=== PATIENT | male | born 1930 | race Caucasian/White ===

== ENCOUNTER → 2016-09-23 | Outpatient (CLI) | payer OTHER | LOC: BRMIMAGING 10:12 | PROVIDERS: ATTEND Internal Medicine | DX: Z13.820 Encounter for screening for osteoporosis (principal); M85.80 Other specified disorders of bone density and structure, unspecified site; Z82.62 Family history of osteoporosis; Z79.52 Long term (current) use of systemic steroids ==

== ENCOUNTER → 2017-01-16 | Outpatient (CLI) | payer OTHER | LOC: FIMAGING 18:29 | PROVIDERS: ATTEND Internal Medicine | DX: M51.36 Other intervertebral disc degeneration, lumbar region (principal); M48.06 Spinal stenosis, lumbar region; M89.38 Hypertrophy of bone, other site; M51.86 Other intervertebral disc disorders, lumbar region ==

== ENCOUNTER → 2017-02-01 | Outpatient (CLI) | payer OTHER ==
[~2017-02-01] MED LIST: IOPAMIDOL (ISOVUE-300) 100 ML BTL ONE
== END ==
LOC: CIMAGING 11:10
PROVIDERS: ATTEND Surgery
DX: K57.30 Diverticulosis of large intestine without perforation or abscess without bleeding (principal); I70.0 Atherosclerosis of aorta; M53.3 Sacrococcygeal disorders, not elsewhere classified; Z90.89 Acquired absence of other organs; Z96.643 Presence of artificial hip joint, bilateral
CPT/HCPCS: 74177; Q9967

== ENCOUNTER 2017-11-13 11:36 | Emergency (ER) | payer OTHER ==
[2017-11-13] MEDS ORDERED: ASPIRIN 81 MG CHEWABLE TAB PO ONE (11:44)
--- NOTE | 2017-11-13 11:47 | CPEKG ---
Heart Rate: 59 RR Interval: 1017 P-R Interval: 172 QRSD Interval: 82 QT Interval: 404 QTC Interval: 401 P [place]: 44 QRS [place]: 42 T Wave [place]: 5 EKG Severity - NORMAL ECG - EKG Impression: SINUS RHYTHM Electronically Signed By: Aleks Cruz 13-Nov-2017 11:49:18
--- NOTE | 2017-11-13 11:48 | EDPHY ---
H & P Stated Complaint: CP Time Seen by Provider: 11/13/17 11:39 HPI/ROS: CHIEF COMPLAINT: Chest pain HISTORY OF PRESENT ILLNESS: The patient is an 86-year-old man with a history GERD on omeprazole also CVA 4 years ago on Pradaxa and paroxysmal AFib who remains un anticoagulated as well as a carotid endarterectomy. He states that last each of the last 2 nights he woke up around midnight with chest pain that persisted for about an hour. It did seem to improve when he took Tums. He is currently asymptomatic. He denies any history of cardiovascular disease. He denies shortness of breath or lightheadedness or diaphoresis associated with the episodes. No nausea vomiting or diarrhea. No focal weakness or deficits. Today he presented to his primary care's office who referred him here to the ER. REVIEW OF SYSTEMS: Constitutional: denies: chills, fever, recent illness, recent injury EENTM: denies: blurred vision, double vision, nose congestion Respiratory: denies: cough, shortness of breath Cardiac: denies: chest pain, irregular heart rate, lightheadedness, palpitations Gastrointestinal/Abdominal: denies: abdominal pain, diarrhea, nausea, vomiting, blood streaked stools Genitourinary: denies: dysuria, frequency, hematuria, pain Musculoskeletal: denies: joint pain, muscle pain Skin: denies: lesions, rash, jaundice, bruising Neurological: denies: headache, numbness, paresthesia, tingling, dizziness, weakness Hematologic/Lymphatic: denies: blood clots, easy bleeding, easy bruising Immunologic/allergic: denies: HIV/AIDS, transplant EXAM: GENERAL: Well-appearing, well-nourished and in no acute distress. HEAD: Atraumatic, normocephalic. EYES: Pupils equal round and reactive to light, extraocular movements intact, sclera anicteric, conjunctiva are normal. ENT: TMs normal, nares patent, oropharynx clear without exudates. Moist mucous membranes. NECK: Normal range of motion, supple without lymphadenopathy or JVD. LUNGS: Breath sounds clear to auscultation bilaterally and equal. No wheezes rales or rhonchi. HEART: Loud systolic murmur patient states baseline, rubs or gallops. ABDOMEN: Soft, nontender, normoactive bowel sounds. No guarding, no rebound. No masses appreciated. BACK: No CVA tenderness, no spinal tenderness, step-offs or deformities EXTREMITIES: Normal range of motion, no pitting or edema. No clubbing or cyanosis. NEUROLOGICAL: Cranial nerves II through XII grossly intact. Normal speech, normal gait. 5/5 strength, normal movement in all extremities, normal sensation PSYCH: Normal mood, normal affect. SKIN: Warm, dry, normal turgor, no visible rashes or lesions. Source: Patient, Family Exam Limitations: No limitations - Personal History Current Tetanus/Diphtheria Vaccine: Yes Current Tetanus Diphtheria and Acellular Pertussis (TDAP): Yes Tetanus Vaccine Date: WITHIN 10 YRS - Medical/Surgical History Hx Asthma: No Hx Chronic Respiratory Disease: No Hx Diabetes: No Hx Cardiac Disease: No Hx Renal Disease: No Hx Cirrhosis: No Hx Alcoholism: No Hx HIV/AIDS: No Hx Splenectomy or Spleen Trauma: No Other PMH: med hx-ra,cholesterol,htn. surg-bilat hips,knee repl,lumbar. stroke 2013, carotid endart., hernia repair, plebitis lt arm,lap sherice - Family History Significant Family History: No pertinent family hx - Social History Smoking Status: Former smoker Alcohol Use: Sober Drug Use: None Constitutional: Initial Vital Signs Temperature (C) 36.7 C 11/13/17 11:40 Heart Rate 65 11/13/17 11:40 Respiratory Rate 16 11/13/17 11:40 Blood Pressure 161/72 H 11/13/17 11:40 O2 Sat (%) 97 11/13/17 11:40 O2 Delivery Mode Room Air Allergies/Adverse Reactions: amoxicillin [From Augmentin] Allergy (Verified 10/31/16 13:56) apixaban [From Eliquis] Allergy (Verified 11/13/17 11:45) ciprofloxacin [From Cipro] Allergy (Verified 10/31/16 13:55) clavulanic acid [From Augmentin] Allergy (Verified 10/31/16 13:56) Home Medications: Medication Instructions Recorded Beta-Carotene(A) W-C & E/Min 12/06/13 [Ocuvite] Multivitamin [Multi-Vitamin Daily] 12/06/13 Omeprazole [Prilosec] 12/06/13 predniSONE 12/06/13 Ocuvite 07/27/14 Pradaxa 07/27/14 HCTZ (*) 10/31/16 Irbesartan 10/31/16 Potassium Chlorate 10/31/16 Medical Decision Making - Diagnostics EKG Interpretation: An EKG obtained and was read and documented in trace view. Please see trace view for full reading and report. Sinus rhythm, no acute ischemic changes, no previous for comparison Imaging Results: Imaging Impressions Chest X-Ray 11/13/17 11:45 Impression: Nothing acute identified. Imaging: Discussed imaging studies w/ call center trainer Radiologist ED Course/Re-evaluation: 1:00 p.m. the patient remains asymptomatic. We discussed his test results which are reassuring. I offered further observation and repeat troponin. He declines. He thinks that this is likely "indigestion". I recommended he continue his antacid and take Tums before going to bed to see if this helps. I warned him strictly to return if his symptoms return or if he develops any worsening symptoms. He and his understand and agree with this plan. Differential Diagnosis: Partial list of the Differential diagnosis considered include but were not limited to; GERD, peptic ulcer disease, acute coronary disease and although unlikely based on the history and physical exam, I also considered PE, dissection, pneumothorax, pneumonia, musculoskeletal pain. I discussed these differential diagnoses and the plan with the patient as well as the usual and expected course. The patient understands that the diagnosis is provisional and that in medicine we are not always correct and that further workup is often warranted. Usual and customary warnings were given. All of the patient's questions were answered. The patient was instructed to return to the emergency department should the symptoms at all worsen or return, otherwise to followup with the physician as we discussed. - Data Points Laboratory Results: Laboratory Results 11/13/17 12:00 11/13/17 12:00 11/13/17 11/13/17 11/13/17 12:00 12:00 12:00 WBC 6.43 10^3/uL 10^3/uL (3.80-9.50) RBC 4.52 10^6/uL 10^6/uL (4.40-6.38) Hgb 12.9 g/dL L g/dL (13.7-17.5) Hct 38.7 % L % (40.0-51.0) MCV 85.6 fL fL (81.5-99.8) MCH 28.5 pg pg (27.9-34.1) MCHC 33.3 g/dL g/dL (32.4-36.7) RDW 13.3 % % (11.5-15.2) Plt Count 197 10^3/uL 10^3/uL (150-400) MPV 8.8 fL fL (8.7-11.7) Neut % (Auto) 66.9 % % (39.3-74.2) Lymph % (Auto) 20.5 % % (15.0-45.0) [place] % (Auto) 8.2 % % (4.5-13.0) Eos % (Auto) 3.6 % % (0.6-7.6) Baso % (Auto) 0.6 % % (0.3-1.7) Nucleat RBC Rel Count 0.0 % % (0.0-0.2) Absolute Neuts (auto) 4.30 10^3/uL 10^3/uL (1.70-6.50) Absolute Lymphs (auto) 1.32 10^3/uL 10^3/uL (1.00-3.00) Absolute Monos (auto) 0.53 10^3/uL 10^3/uL (0.30-0.80) Absolute Eos (auto) 0.23 10^3/uL 10^3/uL (0.03-0.40) Absolute Basos (auto) 0.04 10^3/uL 10^3/uL (0.02-0.10) Absolute Nucleated RBC 0.00 10^3/uL 10^3/uL (0-0.01) Immature Gran % 0.2 % % (0.0-1.1) Immature Gran # 0.01 10^3/uL 10^3/uL (0.00-0.10) PT 16.0 SEC H SEC (12.0-15.0) INR 1.30 H (0.83-1.16) APTT 47.2 SEC H SEC (23.0-38.0) D-Dimer 0.34 ug/mLFEU ug/mLFEU (0.00-0.50) Sodium 139 mEq/L mEq/L (135-145) Potassium 3.8 mEq/L mEq/L (3.5-5.2) Chloride 100 mEq/L mEq/L (97-110) Carbon Dioxide 29 mEq/l mEq/l (22-31) Anion Gap 10 mEq/L mEq/L (8-16) BUN 19 mg/dL mg/dL (7-23) Creatinine 1.0 mg/dL mg/dL (0.7-1.3) Estimated GFR > 60 Glucose 84 mg/dL mg/dL (70-100) Calcium 9.6 mg/dL mg/dL (8.5-10.4) Total Bilirubin 0.7 mg/dL mg/dL (0.1-1.4) Conjugated Bilirubin 0.3 mg/dL mg/dL (0.0-0.5) Unconjugated Bilirubin 0.4 mg/dL mg/dL (0.0-1.1) AST 33 IU/L IU/L (17-59) ALT 30 IU/L IU/L (21-72) Alkaline Phosphatase 81 IU/L IU/L (38-126) Troponin I 0.012 ng/mL ng/mL (0.000-0.034) Total Protein 6.4 g/dL g/dL (6.3-8.2) Albumin 3.7 g/dL g/dL (3.5-5.0) Lipase 138 IU/L IU/L (23-300) Medications Given: Discontinued Medications Aspirin (Aspirin) 324 mg PO EDNOW ONE Stop: 11/13/17 11:45 Last Admin: 11/13/17 11:51 Dose: 324 mg Departure - Departure Disposition: Home, Routine, Self-Care Clinical Impression: Chest pain Qualifiers: Chest pain type: unspecified Qualified Code(s): R07.9 - Chest pain, unspecified Condition: Fair Instructions: Chest Pain (ED) Referrals: Christopher Johnson MD [Primary Care Provider] - 2-3 days without fail
[2017-11-13 12:11] LABS: PLATELET COUNT 197 10^3/uL (150-400)
[2017-11-13 12:25] LABS: INR 1.3 (0.83-1.16)
[2017-11-13 13:08] VITALS: BP 145/84
== END 2017-11-13 13:25 | disposition home or self-care (01) ==
LOC: CED 11:36
DX: R07.9 Chest pain, unspecified (principal); I10 Essential (primary) hypertension; Z87.891 Personal history of nicotine dependence
CPT/HCPCS: 71046-PO; 80048-PO; 80076-PO; 83690-PO; 84484-PO; 85025-PO; 85378-PO; 85610-PO; 85730-PO

== ENCOUNTER → 2018-01-18 | Outpatient (CLI) | payer OTHER | LOC: CIMAGING 13:54 | PROVIDERS: ATTEND Internal Medicine | DX: M25.762 Osteophyte, left knee (principal); Z96.652 Presence of left artificial knee joint | CPT/HCPCS: 73560-PO; 73565-PO ==